=== PATIENT | female | born 2000 | race Caucasian/White ===

== ENCOUNTER 2020-05-20 22:05 | Emergency (ER) | payer OTHER | END 2020-05-20 22:30 | disposition home or self-care (01) | LOC: BURERS 22:05 | DX: O26.892 Other specified pregnancy related conditions, second trimester (principal); L29.9 Pruritus, unspecified; Z3A.23 23 weeks gestation of pregnancy | CPT/HCPCS: 99282 ==

== ENCOUNTER 2020-06-18 19:40 | Emergency (ER) | payer OTHER | END 2020-06-18 20:35 | disposition short-term general hospital (02) | LOC: BURERS 19:40 | DX: O98.812 Other maternal infectious and parasitic diseases complicating pregnancy, second trimester (principal); B37.3 Candidiasis of vulva and vagina; Z3A.26 26 weeks gestation of pregnancy ==